=== PATIENT | male | born 1960 | race Caucasian/White ===

== ENCOUNTER 2020-04-12 14:08 | Emergency (ER) | payer OTHER ==
[~2020-04-12] VITALS: Ht 180.3 cm; Wt 106.6 kg
[2020-04-12 14:50] LABS: BASOPHILS # (AUTO) 0.1 /CMM (0.0-0.2); BASOPHILS % (AUTO) 0.9 % (0.0-2.0); EOSINOPHILS % (AUTO) 1.5 % (0.0-6.0); HEMATOCRIT 43 % (39-51); HEMOGLOBIN 14.7 g/dL (13.5-17.5); LYMPHOCYTES # (AUTO) 2.2 /CMM (0.8-4.8); LYMPHOCYTES % (AUTO) 24.6 % (20.0-44.0); MEAN CORPUSCULAR HGB CONC 34 g/dl (31.0-36.0); MEAN CORPUSCULAR VOLUME 95 fL (80-96); MONOCYTES % (AUTO) 10.8 % (2.0-12.0); NEUTROPHILS # (AUTO) 5.5 /CMM (1.8-8.9); NEUTROPHILS % (AUTO) 62.2 % (43.0-81.0); PLATELET COUNT (AUTO) 220 /CMM (150-450); RED BLOOD CELL COUNT(AUTO) 4.55 MIL/uL (4.5-6.0); WHITE BLOOD COUNT (AUTO) 8.8 K/uL (4.3-11.0)
[2020-04-12 15:05] LABS: ALANINE AMINOTRANSFERASE 63 U/L (12-78); ALCOHOL, BLOOD < 3 mg/dL (0-0); ALKALINE PHOSPHATASE 91 U/L (46-116); ASPARTATE AMINOTRANSFERASE 44 U/L (15-37); BILIRUBIN,DIRECT 0.1 mg/dL (0.0-0.2); BILIRUBIN,TOTAL 0.5 mg/dL (0.2-1.0); CALCIUM, SERUM 9.2 mg/dL (8.5-10.1); CARBON DIOXIDE 32 mmol/L (21-32); CHLORIDE 105 mmol/L (98-107); CREATININE 0.9 mg/dL (0.6-1.3); GLUCOSE 112 mg/dL (74-106); POTASSIUM 3.3 mmol/L (3.5-5.1); SODIUM SERUM 146 mmol/L (136-145); TOTAL PROTEIN, SERUM 7.4 g/dL (6.4-8.2); UREA NITROGEN, BLOOD 21 mg/dL (7-18)
[2020-04-12] MEDS ORDERED: IOHEXOL-300 100 ML VIAL IV ONE (15:19)
[2020-04-12] MEDS ORDERED: IV NS 0.9% 250 ML IV ONE (15:19)
--- NOTE | 2020-04-12 16:15 | NUR ---
Urine obtained and send to lab .
--- NOTE | 2020-04-12 16:42 | NUR ---
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 The patient [id number]. Denies pain. In room air and denies sob. Respiration regular and unlabored. The patient with stable gait. Removed iv from RAC, no bleeding noted, covered the site with 2x2 folded gauze. Discharge education provided to the patient and he verbalized understanding. The patient left the hospital in stable condiiton and with the officer.
[2020-04-12 16:47] VITALS: BP 151/100
== END 2020-04-12 16:48 ==
LOC: ER 14:10
DX: S30.811A Abrasion of abdominal wall, initial encounter (principal); S19.9XXA Unspecified injury of neck, initial encounter; S09.90XA Unspecified injury of head, initial encounter; F19.129 Other psychoactive substance abuse with intoxication, unspecified; V49.49XA Driver injured in collision with other motor vehicles in traffic accident, initial encounter; Y93.89 Activity, other specified; Y92.89 Other specified places as the place of occurrence of the external cause; Y99.8 Other external cause status
CPT/HCPCS: 36415; 70450; 71045; 71260; 72125; 74177; 80048; 80076; 80307; 80320; 85025; 85730; 99285; J7050; Q9967; G0480